=== PATIENT | female | born 1950 ===

== ENCOUNTER 2017-05-27 07:54 | Day surgery (SDC) | payer OTHER ==
[2017-05-27 08:07] VITALS: BMI 32.0
[2017-05-27] MEDS ORDERED: Lactated Ringer's 500 ML IV SCH (09:45)
[2017-05-27] MEDS ORDERED: Propofol 10 mg/ml Inj (20 ML) ONE ×2 (09:48→10:14)
[2017-05-27] MEDS ORDERED: Lactated Ringer's 500 ML IV ONE (09:49)
[2017-05-27 10:43] VITALS: TEMP 96.9
[2017-05-27 11:01] VITALS: RESP 19; O2SAT 100
[2017-05-27 11:33] VITALS: PULSE 59
[2017-05-27 11:37] VITALS: BP 103/56
== END 2017-05-27 11:35 | disposition home or self-care (01) ==
LOC: C.ENDO 07:54
PROVIDERS: ATTEND Internal Medicine
DX: D12.2 Benign neoplasm of ascending colon (principal); D12.3 Benign neoplasm of transverse colon; D12.4 Benign neoplasm of descending colon; D12.5 Benign neoplasm of sigmoid colon; K64.8 Other hemorrhoids; K57.90 Diverticulosis of intestine, part unspecified, without perforation or abscess without bleeding
CPT/HCPCS: 45380; 82948; 88305; J2704; J7120